=== PATIENT | male | born 1995 | race African-American/Black ===

== ENCOUNTER 2017-11-24 22:08 | Emergency (ER) | payer MEDICAID, OTHER ==
[~2017-11-24] VITALS: Ht 182.9 cm; Wt 72.6 kg
[2017-11-24] MEDS ORDERED: IBUPROFEN600 MG ORAL (22:42)
--- NOTE | 2017-11-24 22:42 | Emergency Room Report ---
History of Present Illness General Chief Complaint: Upper Extremity Injury Source: Patient Present Illness HPI Is a 22-year-old male who is right-hand dominant. He presents with chief complaint of right wrist pain. Onset was about a week ago after he was boxing. He said after the bout since then his wrist been hurting. Special he try to move his thumb and index finger. No swelling. No fever chills. Denies any other complaint. Pain is 7 out of 10. Worse with movement. Better with rest. Allergies: Coded Allergies: No Known Allergies (Unverified , 11/24/17) Patient History Past Medical History: see triage record, old chart reviewed Past Surgical History: none Pertinent Family History: none Social History: Denies: smoking Immunizations: other Reviewed Nursing Documentation: PMH: Agreed; PSxH: Agreed Nursing Documentation-PM Past Medical History: No Stated History Review of Systems Eye: Denies: eye pain, blurred vision ENT: Denies: ear pain, nose congestion, throat swelling Respiratory: Denies: cough, shortness of breath Cardiovascular: Denies: chest pain, palpitations Gastrointestinal: Denies: abdominal pain, diarrhea, nausea, vomiting Musculoskeletal: Reports: joint pain; Denies: back pain Skin: Denies: rash Neurological: Denies: headache, numbness Endocrine: Denies: increased thirst, increased urine Hematologic/Lymphatic: Denies: easy bruising All Other Systems: negative except mentioned in HPI Physical Exam Vital Signs Date Time Temp Pulse Resp B/P (MAP) Pulse Ox O2 Delivery O2 Flow Rate FiO2 11/24/17 22:22 98.7 77 16 143/83 98 Room Air 98.8 vitals unremarkable Sp02 EP Interpretation: reviewed, normal General Appearance: well appearing, no apparent distress, alert Head: normocephalic, atraumatic Eyes: bilateral eye PERRL, bilateral eye EOMI ENT: hearing grossly normal, normal pharynx Neck: full range of motion, supple, no meningismus Respiratory: chest non-tender, lungs clear, normal breath sounds Cardiovascular #1: regular rate, rhythm, no murmur Gastrointestinal: normal bowel sounds, non tender, no mass, no organomegaly, no bruit, non-distended Musculoskeletal: back normal, gait/station normal, normal range of motion, tender - Mild tenderness to the base the thumb at the wrist on the right Neurologic: alert, oriented x3 Psychiatric: mood/affect normal Skin: warm/dry Medical Decision Making Diagnostic Impression: Primary Impression: Sprain of wrist, right Qualified Codes: S63.501A - Unspecified sprain of right wrist, initial encounter Other X-Ray Diagnostic Results Other X-Ray Diagnostic Results : X-Ray ordered: Right wrist x-rays # of Views/Limited Vs Complete: 3 View Indication: Pain EP Interpretation: Yes Interpretation: no dislocation, no soft tissue swelling, no fractures Impression: No acute disease Electronically Signed by: Evelio Xiong MD Last Vital Signs Date Time Temp Pulse Resp B/P (MAP) Pulse Ox O2 Delivery O2 Flow Rate FiO2 11/24/17 22:22 98.7 77 16 143/83 98 Room Air 98.8 Status: improved Disposition: HOME, SELF-CARE Condition: Stable Scripts Ibuprofen* (MOTRIN*) 600 Mg Tablet 600 MG ORAL THREE TIMES A DAY, #30 TAB 0 Refills Prov: EVELIO XIONG M.D. 11/24/17 Additional Instructions: Follow-up with your doctor in 7 days. Return if symptom worsen. EVELIO XIONG M.D. Nov 24, 2017 22:42
[2017-11-24 22:43] VITALS: BP 143/83
[2017-11-24 22:59] VITALS: BP 143/83
--- NOTE | 2017-11-24 23:34 | Diagnostic Imaging Report ---
EXAM: XR Right Wrist Complete, 3 or More Views CLINICAL HISTORY: TRAUMA TECHNIQUE: Frontal, lateral and oblique views of the right wrist. COMPARISON: No relevant prior studies available. FINDINGS: Bones/joints: Unremarkable. No acute fracture. No dislocation. Soft tissues: Unremarkable. No radiopaque foreign body. IMPRESSION: Normal right wrist x-rays.
== END 2017-11-24 22:59 | disposition home or self-care (01) ==
LOC: EMR 22:19
DX: S63.501A Unspecified sprain of right wrist, initial encounter (principal); Y93.71 Activity, boxing; Y92.9 Unspecified place or not applicable
CPT/HCPCS: 99283

== ENCOUNTER 2018-06-27 21:50 | Emergency (ER) | payer SELFPAY ==
[~2018-06-27] VITALS: Ht 182.9 cm; Wt 72.6 kg
[~2018-06-27 21:50] MED LIST: IBUPROFEN600 MG ORAL
--- NOTE | 2018-06-27 22:05 | NUR ---
ED Nurse Note: Pt c/o L eye redness and painful since yesterday. Pain level 5/10. Pt use eye drop but not working. ermd on bedside. will continue to monitor.
[2018-06-27] MEDS ORDERED: POLYTRIM OP SOL10 ML OPHTHALM (22:12)
--- NOTE | 2018-06-27 22:13 | Emergency Room Report ---
History of Present Illness General Chief Complaint: Eye Problems Source: Patient Present Illness HPI Is a 22-year-old male with no past medical history. He presents with chief complaint of left eye irritation. Onset for the last 2-3 days. No relief with [id number] medication. Slight drainage. Some redness. No nausea vomiting. No foreign body. Discharge is clear. Slight runny nose and congestion. Allergies: Coded Allergies: No Known Allergies (Unverified , 11/24/17) Patient History Past Medical History: see triage record, old chart reviewed Past Surgical History: none Pertinent Family History: none Social History: Reports: drug use - Marijuana; Denies: smoking Immunizations: other Reviewed Nursing Documentation: PMH: Agreed; PSxH: Agreed Review of Systems Eye: Reports: eye pain; Denies: blurred vision ENT: Denies: ear pain, nose congestion, throat swelling Respiratory: Denies: cough, shortness of breath Cardiovascular: Denies: chest pain, palpitations Gastrointestinal: Denies: abdominal pain, diarrhea, nausea, vomiting Musculoskeletal: Denies: back pain, joint pain Skin: Denies: rash Neurological: Denies: headache, numbness Endocrine: Denies: increased thirst, increased urine Hematologic/Lymphatic: Denies: easy bruising All Other Systems: negative except mentioned in HPI Physical Exam Vital Signs Date Time Temp Pulse Resp B/P (MAP) Pulse Ox O2 Delivery O2 Flow Rate FiO2 06/27/18 22:00 99.0 94 18 133/75 98 Room Air vitals normal Sp02 EP Interpretation: reviewed, normal General Appearance: well appearing, no apparent distress, alert Head: normocephalic, atraumatic Eyes: left eye other - Left conjunctiva injected; bilateral eye PERRL, bilateral eye EOMI ENT: hearing grossly normal, normal pharynx Neck: full range of motion, supple, no meningismus Respiratory: chest non-tender, lungs clear, normal breath sounds Cardiovascular #1: regular rate, rhythm, no murmur Gastrointestinal: normal bowel sounds, non tender, no mass, no organomegaly, no bruit, non-distended Musculoskeletal: back normal, gait/station normal, normal range of motion Psychiatric: mood/affect normal Skin: warm/dry Medical Decision Making Diagnostic Impression: Primary Impression: Conjunctivitis of left eye Qualified Codes: H10.32 - Unspecified acute conjunctivitis, left eye ER Course Patient with acute conjunctivitis. No foreign body. No loss of visual acuity. With antibiotic drops. Told patient to treat both eyes. Last Vital Signs Date Time Temp Pulse Resp B/P (MAP) Pulse Ox O2 Delivery O2 Flow Rate FiO2 06/27/18 22:00 99.0 94 18 133/75 98 Room Air Status: improved Disposition: HOME, SELF-CARE Condition: Stable Scripts Polymyxin/Trimethoprim (Polytrim Eye Drops) 10 Ml Drops 2 DROP OPHTHALM THREE TIMES A DAY, #1 EA Instill in affected eye for 7 days Prov: Evelio Xiong MD 06/27/18 Patient Instructions: Bacterial Conjunctivitis, [id number] Additional Instructions: Treat both eyes. Do not rub the eyes. Follow-up with your doctor in 7 days for recheck. Return if worse. Evelio Xiong MD Jun 27, 2018 22:13
[2018-06-27 22:16] VITALS: BP 133/75
--- NOTE | 2018-06-27 22:16 | NUR ---
ED Nurse Note: Patient is being discharged cleared by ER PA. discharge paper/instruction given to the patient, patient verbalized understanding. patient a/o x4, ambulated out of Ed with steady gait, with all belongings. ID band removed.
== END 2018-06-27 22:30 | disposition home or self-care (01) ==
LOC: EMR 22:10
DX: H10.32 Unspecified acute conjunctivitis, left eye (principal); F12.90 Cannabis use, unspecified, uncomplicated; F17.200 Nicotine dependence, unspecified, uncomplicated
CPT/HCPCS: 99282

== ENCOUNTER 2019-02-16 00:53 | Emergency (ER) | payer MEDICAID, OTHER ==
[~2019-02-16] VITALS: Ht 182.9 cm; Wt 86.2 kg
[~2019-02-16 00:53] MED LIST changes: +POLYTRIM OP SOL10 ML OPHTHALM; +TESSALON PERLE100 MG ORAL
[2019-02-16] MEDS ORDERED: NKM (01:00)
--- NOTE | 2019-02-16 01:04 | NUR ---
ED Nurse Note: PT WALKED IN TO ED C/O PAIN TO RIGHT PINKY TOE. MPER PT, ABOUT 3 WEEKS AGO, HIS FRIEND TEPPED ON IT BY ACCIDENT. MINIMAL SWELLING NOTED TO RIGHT PINKY TOE. PT IS STILL ABLE TO MOVE ALL THE TOES TO RIGHT FOOT. PT IS ALERT X4. VSS.
--- NOTE | 2019-02-16 01:04 | NUR ---
Note nahid in EDM - 02/16/19 at 0115 by DOUGLAS ED Nurse Note: PT WALKED IN TO ED C/O PAIN TO RIGHT PINKY TOE. MPER PT, ABOUT A WEEK AGO, HIS FRIEND TEPPED ON IT BY ACCIDENT. MINIMAL SWELLING NOTED TO RIGHT PINKY TOE. PT IS STILL ABLE TO MOVE ALL THE TOES TO RIGHT FOOT. PT IS ALERT X4. VSS.
--- NOTE | 2019-02-16 01:15 | Emergency Room Report ---
History of Present Illness General Chief Complaint: Lower Extremity Injury Source: Patient Present Illness [facility] This is a 23-year-old male with no past medical problem. He presents with chief complaint of right foot pain. Injury was about 2 to 3 weeks ago. Was playing football in the pool and a friend of his who is very heavy step on his foot. He said it was all swollen and black and blue for over a week. Now when he walks he has some pain to it. Normal swelling. Normal trauma. He wants to make sure everything is fine. Denies any other complaint. Pain is to the base of the fifth toe and lateral aspect of the foot distally. Allergies: Coded Allergies: No Known Allergies (Unverified , 11/24/17) Patient History Past Medical History: none, see triage record, old chart reviewed Past Surgical History: none Pertinent Family History: none Social History: Denies: smoking Immunizations: UTD Reviewed Nursing Documentation: PMH: Agreed; PSxH: Agreed Nursing Documentation-PMH Past Medical History: No Stated History Review of Systems Eye: Denies: eye pain, blurred vision ENT: Denies: ear pain, nose congestion, throat swelling Respiratory: Denies: cough, shortness of breath Cardiovascular: Denies: chest pain, palpitations Gastrointestinal: Denies: abdominal pain, diarrhea, nausea, vomiting Musculoskeletal: Reports: joint pain; Denies: back pain Skin: Denies: rash Neurological: Denies: headache, numbness Endocrine: Denies: increased thirst, increased urine Hematologic/Lymphatic: Denies: easy bruising All Other Systems: negative except mentioned in HPI Physical Exam Vital Signs Date Time Temp Pulse Resp B/P (MAP) Pulse Ox O2 Delivery O2 Flow Rate FiO2 02/16/19 00:57 98.2 72 18 123/78 (93) 98 Room Air Vitals normal Sp02 EP Interpretation: reviewed, normal General Appearance: well appearing, no apparent distress, alert Head: normocephalic, atraumatic Eyes: bilateral eye PERRL, bilateral eye EOMI ENT: hearing grossly normal, normal pharynx Neck: full range of motion, supple, no meningismus Respiratory: chest non-tender, lungs clear, normal breath sounds Cardiovascular #1: regular rate, rhythm, no murmur Gastrointestinal: normal bowel sounds, non tender, no mass, no organomegaly, no bruit, non-distended Musculoskeletal: back normal, gait/station normal, normal range of motion Psychiatric: mood/affect normal Medical Decision Making Diagnostic Impression: Primary Impression: Toe fracture, right Qualified Codes: S92.514A - Nondisplaced fracture of proximal phalanx of right lesser toe(s), initial encounter for closed fracture ER Course Presents with toe fracture. No evidence of dislocation. Will discharge home. Other X-Ray Diagnostic Results Other X-Ray Diagnostic Results : X-Ray ordered: Foot x-rays, right # of Views/Limited Vs Complete: 3 View Indication: Pain EP Interpretation: Yes Interpretation: no dislocation, no soft tissue swelling, other - Proximal phalanx fracture of the fifth toe Impression: Other - 5th prox phal frx of toe Electronically Signed by: Evelio Xiong MD Last Vital Signs Date Time Temp Pulse Resp B/P (MAP) Pulse Ox O2 Delivery O2 Flow Rate FiO2 02/16/19 00:57 98.2 72 18 123/78 (93) 98 Room Air Status: unchanged Disposition: HOME, SELF-CARE Condition: Stable Scripts Ibuprofen* (MOTRIN*) 600 Mg Tablet 600 MG ORAL THREE TIMES A DAY, #30 TAB 0 Refills Prov: Evelio Xiong MD 02/16/19 Additional Instructions: Follow up with your doctor in 7 days. Return if symptoms worsen. Evelio Xiong MD Feb 16, 2019 01:15
--- NOTE | 2019-02-16 01:17 | NUR ---
ED Nurse Note: X RAY AT BED SIDE
[2019-02-16] MEDS ORDERED: IBUPROFEN600 MG ORAL (01:25)
[2019-02-16 01:28] VITALS: BP 122/78
--- NOTE | 2019-02-16 01:28 | NUR ---
ER DISCHARGE NOTE: Patient is cleared to be discharged per ERMD, pt is aox4, on room air, with stable vital signs. pt was given dc and prescription instructions, pt was able to verbalize understanding, pt id band removed without complications. pt is able to ambulate with steady gait. pt took all belongings.
--- NOTE | 2019-02-16 01:59 | Diagnostic Imaging Report ---
EXAM: XR Right Foot Complete, 3 or More Views CLINICAL HISTORY: TRAUMA TECHNIQUE: Frontal, lateral and oblique views of the right foot. COMPARISON: No relevant prior studies available. FINDINGS: Bones joints: Acute fracture through the base of the proximal phalanx of the fifth digit. No dislocation. Soft tissues: Unremarkable. No radiopaque foreign body. IMPRESSION: Acute fracture through the base of the proximal phalanx of the fifth digit. No definite intra-articular extension.
== END 2019-02-16 01:28 | disposition home or self-care (01) ==
LOC: EMR 01:15
DX: S92.514A Nondisplaced fracture of proximal phalanx of right lesser toe(s), initial encounter for closed fracture (principal); W50.0XXA Accidental hit or strike by another person, initial encounter; Y93.11 Activity, swimming; Y92.9 Unspecified place or not applicable
CPT/HCPCS: 73630; Z7502; 99283

== ENCOUNTER 2019-03-25 22:17 | Emergency (ER) | payer MEDICAID ==
[~2019-03-25] VITALS: Ht 193 cm; Wt 86.2 kg
[~2019-03-25 22:17] MED LIST changes: +NKM
--- NOTE | 2019-03-25 22:28 | NUR ---
ED Nurse Note: pt presents to ED c/o a cough X 2 weeks. pt denies any pain but does report "congestion in his chest." pt states that he ahs felt this way in the past and has been prescriped abx for it. pt reports mild SOB when lying down at night for work and "sometimes" on exertion. pt has not taken anything for his symptoms today. mild bilat expiratory wheezes heard on auscultation
[2019-03-25 22:30] VITALS: BP 153/97
[2019-03-25] MEDS ORDERED: Albuterol ud Inhalation HHN ONE (22:45)
[2019-03-25] MEDS ORDERED: Ipratropium 0.02% Inh Soln 2.5ml UD HHN ONE (22:45)
--- NOTE | 2019-03-25 22:50 | NUR ---
ED Nurse Note: RT is in with pt for breathing treatment. pt tolerated 60 mg of prednisone PO
--- NOTE | 2019-03-25 23:11 | NUR ---
ED Nurse Note: per RT, pt's wheezing has improved and sounds more dimished now. pt reports less congestion. he is in no acute distress at this time, will prepare for d/c
[2019-03-25] MEDS ORDERED: ALBUTEROL SULF8.5 GM INH (23:15)
[2019-03-25] MEDS ORDERED: AMOXICILLIN500 MG ORAL (23:15)
[2019-03-25] MEDS ORDERED: PREDNISONE20 MG ORAL (23:15)
[2019-03-25 23:22] VITALS: BP 148/84
--- NOTE | 2019-03-25 23:38 | Emergency Room Report ---
History of Present Illness General Chief Complaint: Upper Respiratory Illness Source: Patient Present Illness HPI 23-year-old male presents ED for evaluation. Complaining of cough and congestion x2 weeks. States it is difficult to breathe. States cough is productive with yellowish phlegm. Denies fevers or chills. Denies asthma. Admits to smoking marijuana every day. Denies sick contacts or recent travel. No other aggravating relieving factors. Denies any other associated symptoms Allergies: Coded Allergies: No Known Allergies (Unverified , 11/24/17) Patient History Past Medical History: none Past Surgical History: none Pertinent Family History: none Social History: Reports: smoking, drug use; Denies: alcohol use Immunizations: UTD Reviewed Nursing Documentation: PMH: Agreed; PSxH: Agreed Nursing Documentation-PMH Past Medical History: No Stated History Review of Systems All Other Systems: negative except mentioned in HPI Physical Exam Vital Signs Date Time Temp Pulse Resp B/P (MAP) Pulse Ox O2 Delivery O2 Flow Rate FiO2 03/25/19 22:19 98.1 67 16 153/97 (115) 98 Room Air 03/25/19 22:46 21 Sp02 EP Interpretation: reviewed, normal General Appearance: no apparent distress, alert, GCS 15, non-toxic Head: normocephalic, atraumatic Eyes: bilateral eye normal inspection, bilateral eye PERRL ENT: hearing grossly normal, normal pharynx, no angioedema, normal voice Neck: full range of motion, supple/symm/no masses Respiratory: chest non-tender, decreased breath sounds, speaking full sentences , wheezing Cardiovascular #1: regular rate, rhythm, no edema Cardiovascular #2: 2+ carotid (R), 2+ carotid (L), 2+ radial (R), 2+ radial (L) , 2+ dorsalis pedis (R), 2+ dorsalis pedis (L) Gastrointestinal: normal bowel sounds, non tender, soft, non-distended, no guarding, no rebound Rectal: deferred Genitourinary: normal inspection, no CVA tenderness Musculoskeletal: back normal, gait/station normal, normal range of motion, non- tender Neurologic: alert, oriented x3, responsive, motor strength/tone normal, sensory intact, speech normal Psychiatric: judgement/insight normal, memory normal, mood/affect normal, no suicidal/homicidal ideation Reflexes: 3+ bicep (R), 3+ bicep (L), 3+ tricep (R), 3+ tricep (L), 3+ knee (R) , 3+ knee (L) Lymphatic: no adenopathy Medical Decision Making Diagnostic Impression: Primary Impression: Atypical pneumonia ER Course Hospital Course 23-year-old male presents to ED complaining of cough, congestion x 2 weeks Differential diagnoses include: URI, bronchitis, asthma/COPD, pneumonia Clinical course Patient placed on stretcher. After initial history and physical I ordered prednisone and nebulizer treatment. Upon reassessment patient states cough and symptoms have improved. Given symptoms persisting for 2 weeks with smoking history we will discharge with antibiotics. Does not have a PMD. Will provide referrals Diagnosis - atypical pneumonia Stable and discharged home with prescriptions for Rx amoxicillin, prednisone, albuterol. Instructed to followup with PMD. Return to ED if symptoms recur or worsen Last Vital Signs Date Time Temp Pulse Resp B/P (MAP) Pulse Ox O2 Delivery O2 Flow Rate FiO2 03/25/19 23:22 98.1 16 148/84 97 Room Air 21 03/25/19 23:02 63 Status: improved Disposition: HOME, SELF-CARE Condition: Stable Scripts Prednisone* (PREDNISONE*) 20 Mg Tablet 40 MG ORAL DAILY, #10 TAB Prov: Shan Maxwell MD 03/25/19 Albuterol Sulfate* (ALBUTEROL SULFATE MDI*) 8.5 Gm Hfa.aer.ad 2 PUFF INH Q6H, #1 EA 0 Refills Prov: Shan Maxwell MD 03/25/19 Amoxicillin* (AMOXIL*) 500 Mg Capsule 500 MG ORAL THREE TIMES A DAY, #21 CAP Prov: Shan Maxwell MD 03/25/19 Referrals: [facility] Patient Instructions: Community-Acquired Pneumonia, Adult, [id number] Shan Maxwell MD Mar 25, 2019 23:38
== END 2019-03-25 23:23 | disposition home or self-care (01) ==
LOC: EMR 22:35
DX: J18.9 Pneumonia, unspecified organism (principal); F17.200 Nicotine dependence, unspecified, uncomplicated; F12.10 Cannabis abuse, uncomplicated
CPT/HCPCS: 94640; 94664; J7512; Z7502; 99284

== ENCOUNTER 2019-11-09 17:51 | Emergency (ER) | payer MEDICAID ==
[~2019-11-09] VITALS: Ht 182.9 cm; Wt 81.6 kg
[~2019-11-09 17:51] MED LIST changes: +ALBUTEROL SULF8.5 GM INH; +AMOXICILLIN500 MG ORAL; +PREDNISONE20 MG ORAL
[2019-11-09 18:05] VITALS: BP 128/80
--- NOTE | 2019-11-09 18:21 | Emergency Room Report ---
History of Present Illness General Chief Complaint: Upper Respiratory Illness Source: Patient Present Illness HPI 24 YO male presents to the ED c/o purulent nasal d/c and congestion x 2 weeks. Pt. denies fevers or chills. He denies pain at this time. Reports hx of seasonal allergies in the past but present differently. Pt. reports congestion causing frontal pressure headaches that are progressive and intermittent. Pt. denies photophobia, neck pain/stiffness or CP. pt. reports occasionally coughing out mucus that drains down his throat usually when awakening in the mornings. Pt. denies recent travel or ill contacts. Pt. denies body aches. Denies SOB or wheezing. Allergies: Coded Allergies: No Known Allergies (Unverified , 11/24/17) COVID-19 Screening Contact w/high risk pt: No Recent Travel to affected area: No Experienced COVID-19 symptoms?: Yes COVID-19 symptoms experienced: Cough COVID-19 Testing performed EMS DIRECTOR: No Patient History Past Medical History: see triage record Past Surgical History: none Pertinent Family History: none Social History: Reports: smoking - THC Immunizations: UTD Reviewed Nursing Documentation: PMH: Agreed; PSxH: Agreed Nursing Documentation-PMH Past Medical History: No Stated History Review of Systems All Other Systems: negative except mentioned in HPI Physical Exam Vital Signs Date Time Temp Pulse Resp B/P (MAP) Pulse Ox O2 Delivery O2 Flow Rate FiO2 11/09/19 17:55 98.1 73 14 128/80 (96) 98 Room Air Sp02 EP Interpretation: reviewed, normal General Appearance: no apparent distress, alert, GCS 15, non-toxic Head: normocephalic, atraumatic Eyes: bilateral eye normal inspection, bilateral eye PERRL, bilateral eye other - no photophobia ENT: hearing grossly normal, normal pharynx, normal voice, TMs + canals normal , uvula midline, moist mucus membranes, nasal congestion - bilaterally. nares are not patent Neck: full range of motion, no meningismus, no bony tend Respiratory: chest non-tender, lungs clear, normal breath sounds, no respiratory distress, no accessory muscle use, no wheezing, speaking full sentences Cardiovascular #1: regular rate, rhythm Musculoskeletal: normal range of motion, gait/station normal, non-tender Neurologic: alert, motor strength/tone normal, oriented x3, sensory intact, responsive, speech normal Psychiatric: judgement/insight normal Skin: normal color Lymphatic: no adenopathy Medical Decision Making PA Attestation Dr. Casanova Is my supervising Physician whom patient management has been discussed with. Diagnostic Impression: Primary Impression: Sinusitis, bacterial ER Course 24 YO male presents to the ED c/o purulent nasal d/c and congestion x 2 weeks. Pt. denies fevers or chills. He denies pain at this time. Reports hx of seasonal allergies in the past but present differently. Pt. reports congestion causing frontal pressure headaches that are progressive and intermittent. Pt. denies photophobia, neck pain/stiffness or CP. pt. reports occasionally coughing out mucus that drains down his throat usually when awakening in the mornings. Pt. denies recent travel or ill contacts. Pt. denies body aches. Denies SOB or wheezing. Ddx considered but are not limited to URI, pneumonia, PE, strep pharyngitis, meningitis, COVID-19 Vital signs: Pt. is afebrile, the remaining VS are WNL H&PE are most consistent with SINUSITIS lasting greater than 10 days ---- 2 weeks to be exact. - no meningeal signs, oropharynx is not involved, no evidence of bacterial infection at this time. Pt. not in resp. distress. Pt. not hypoxic ORDERS: none required at this time, the diagnosis is clinical ED INTERVENTIONS: None required at this time. --PT. EDUCATION: Discussed conservative use of Afrin and not to use more than 3 days in a row. DISCHARGE: At this time pt. is stable for d/c to home. Will provide printed patient care instructions, and any necessary prescriptions. Care plan and follow up instructions have been discussed with the patient prior to discharge. Last Vital Signs Date Time Temp Pulse Resp B/P (MAP) Pulse Ox O2 Delivery O2 Flow Rate FiO2 11/09/19 18:05 73 14 Room Air 11/09/19 18:05 98.1 128/80 98 Disposition: HOME, SELF-CARE Condition: Stable Scripts Acetaminophen* (TYLENOL EXTRA STRENGTH*) 500 Mg Tablet 500 MG ORAL Q6H, #20 TAB 0 Refills Prov: Suzie Escobar 11/09/19 Oxymetazoline HCl (Afrin) 15 Ml [place] 2 SPRAYS NASAL TWICE A DAY, #30 SPRAY Do not use for more than 3 consecutive days Prov: Suzie Escobar 11/09/19 Amoxicillin/Potassium Clav 875-125* (AUGMENTIN 875-125 TABLET*) 1 Each Tablet 1 TAB ORAL TWICE A DAY for 10 Days, #20 TAB Prov: Suzie Escobar 11/09/19 Referrals: NON PHYSICIAN (PCP) Suzie Escobar Nov 09, 2019 18:21
[2019-11-09] MEDS ORDERED: AUGMENTIN 875-1 EAC1 ORAL (18:25)
[2019-11-09] MEDS ORDERED: AFRIN NASAL SPR30 ML NASAL (18:25)
[2019-11-09] MEDS ORDERED: TYLENOL EXTRA500 MG ORAL (18:25)
[2019-11-09 18:36] VITALS: BP 128/80
== END 2019-11-09 18:37 | disposition home or self-care (01) ==
LOC: EMR 18:14
DX: J32.9 Chronic sinusitis, unspecified (principal)
CPT/HCPCS: 99282

== ENCOUNTER 2020-04-04 11:26 | Emergency (ER) | payer MEDICAID ==
[~2020-04-04] VITALS: Ht 182.9 cm; Wt 80.3 kg
[~2020-04-04 11:26] MED LIST changes: +AFRIN NASAL SPR30 ML NASAL; +AUGMENTIN 875-1 EAC1 ORAL; +TYLENOL EXTRA500 MG ORAL
[2020-04-04 11:39] VITALS: BP 112/78
--- NOTE | 2020-04-04 11:39 | NUR ---
ED Nurse Note: Pt walked in to ED c/o on and off difficulty breathing that worsens in the AM and while exercising x couple months. Pt was seen here couple months ago and was told to go back to the ER if his breathing did not improve. Pt took his inhaler this AM. On room air, 97%. afberile. Denies CP. AAOx4, verbally responsive.
--- NOTE | 2020-04-04 12:24 | Emergency Room Report ---
History of Present Illness General Chief Complaint: Dyspnea/Respdistress Source: Patient Present Illness HPI The patient presents with difficult to breathing. At this time it is mainly that he has nasal congestion. In the morning sometimes however he complains about wheezing. He does have an inhaler and uses that with some improvement. He denies any wheezing at this time. There is no fever or chills. He denies noticing some postnasal drip. His mother has a history of allergies. He is not been diagnosed with allergies. The patient was recently seen here a few weeks ago and prescribed Augmentin, Afrin and Tylenol. He states that he had improvement with that but has run out of medications at this time. He denies any epistaxis. The patient does smoke cannabis. Patient denies exposure to COVID-19 positive contacts. The patient is undergoing treatment for acne. There are 2 medications and is not certain what the names are. No sore throat, chest pain, palpitations, nausea, vomiting, diarrhea, dysuria, abdominal pain, shortness of breath, joint pain, rashes, dizziness, headache. In addition the patient is complaining about some swelling under his right underarm. There is no drainage there. This is been an intermittent problem. 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 Patient History Social History: Reports: drug use; Denies: smoking, alcohol use Social History Narrative Works at [employer] Reviewed Nursing Documentation: PMH: Agreed; PSxH: Agreed Nursing Documentation-PMH Past Medical History: No Stated History Review of Systems All Other Systems: negative except mentioned in HPI Physical Exam Vital Signs Date Time Temp Pulse Resp B/P (MAP) Pulse Ox O2 Delivery O2 Flow Rate FiO2 04/04/20 11:33 98.8 70 19 112/78 (89) 99 Room Air Sp02 EP Interpretation: reviewed, normal General Appearance: well appearing, no apparent distress, GCS 15 Head: normocephalic Eyes: bilateral eye normal inspection, bilateral eye PERRL, bilateral eye EOMI ENT: normal pharynx, TMs + canals normal, moist mucus membranes, other - Nasal congestion and slight erythema Neck: normal inspection, full range of motion Respiratory: lungs clear, normal breath sounds Cardiovascular #1: regular rate, rhythm Gastrointestinal: normal inspection Musculoskeletal: gait/station normal Neurologic: alert, grossly normal Psychiatric: mood/affect normal Skin: normal color, warm/dry, other - Acne Medical Decision Making Diagnostic Impression: Primary Impression: Allergic rhinitis Qualified Codes: J30.9 - Allergic rhinitis, unspecified Additional Impression: Hydradenitis ER Course The patient presents with nasal congestion and occasional wheezing. Differential includes sinusitis, allergic sinusitis, asthma exacerbation amongst others. Without fever doubt bacterial infection. He had improvement with Afrin and antibiotics recently. From his exam and history this is suggests allergic rhinitis and sinusitis. In addition the patient has painful nodules under the right armpit. This suggests either hidradenitis or lymphadenopathy or both. At this time there is no evidence of abscess formation. Without fever antibiotics or not indicated orally. The patient will be treated with topical antibiotics. Discussed in detail considerations for treatment of allergic rhinitis and bronchospasm. In addition discussed treatment plan for the hidradenitis the right armpit. Discussed the importance of outpatient follow-up with patient. Patient stable for outpatient observation and treatment. Last Vital Signs Date Time Temp Pulse Resp B/P (MAP) Pulse Ox O2 Delivery O2 Flow Rate FiO2 04/04/20 12:35 98.8 19 112/78 99 Room Air 04/04/20 11:39 70 Status: unchanged Disposition: HOME, SELF-CARE Condition: Stable Scripts Bacitracin (Bacitracin) 28.4 Gm Oint...g. 1 APPLIC TOPIC BID, #30 GM Prov: Macario Bishop MD 04/04/20 Diphenhydramine Hcl* (BENADRYL*) 25 Mg Capsule 25 MG ORAL QHS PRN for Itching, #20 CAP Prov: Macario Bishop MD 04/04/20 Oxymetazoline Hcl* (AFRIN*) 15 Ml Mist 2 SPRAYS NASAL TWICE A DAY, #15 ML 1 Refill Prov: Macario Bishop MD 04/04/20 Referrals: [facility],REFERR[facility] (PCP) Macario Bisohp MD Apr 04, 2020 12:24
[2020-04-04] MEDS ORDERED: AFRIN15 ML NASAL (12:27)
[2020-04-04] MEDS ORDERED: BACITRACIN15 GM TOPIC (12:27)
[2020-04-04] MEDS ORDERED: BENADRYL25 MG ORAL (12:27)
[2020-04-04 12:35] VITALS: BP 112/78
--- NOTE | 2020-04-04 12:35 | NUR ---
ED Nurse Note: Pt cleared by health care Provider for discharge. DC instructions/prescription was given and explained to pt and verbalized understanding of teachings. All medical deviecs such as ID band removed. Pt is AAO x4, ambulatory and left with all personal belongings.
== END 2020-04-04 12:35 | disposition home or self-care (01) ==
LOC: EMR 11:52
DX: J30.9 Allergic rhinitis, unspecified (principal); L73.2 Hidradenitis suppurativa; R05 Cough
CPT/HCPCS: 99282

== ENCOUNTER 2020-06-04 09:11 | Emergency (ER) | payer MEDICAID ==
[~2020-06-04] VITALS: Ht 182.9 cm; Wt 77.1 kg
[~2020-06-04 09:11] MED LIST changes: +AFRIN15 ML NASAL; +BACITRACIN15 GM TOPIC; +BENADRYL25 MG ORAL
--- NOTE | 2020-06-04 09:30 | NUR ---
ED Nurse Note: Pt walked in from home c/o left arm abscess x 1 year. Pt denies drainage. Respirations even and unlabored on room air. Vitals stable as documented. A+Ox4, speaking in complete sentences.
[2020-06-04 09:40] VITALS: BP 133/84
[2020-06-04] MEDS ORDERED: DOXYCYCLINE MO100 M2 PO (09:59)
[2020-06-04] MEDS ORDERED: NAPROXEN500 M1 ORAL (09:59)
[2020-06-04] MEDS ORDERED: BACTRIM DS TAB1 EAC1 ORAL (09:59)
--- NOTE | 2020-06-04 09:59 | Emergency Room Report ---
History of Present Illness General Chief Complaint: Skin Rash/Abscess Source: Patient Present Illness HPI 24M c/o L axillary abscess x several years , worse over the past 7 days. Denies fevers, chills, nausea, vomiting, chest pain, hemoptysis, melena, hematochezia, petechiae or any other symptoms. Patient states he shaved his armpits about a week ago and this is when everything started. The patient's symptoms were gradual onset, severity was moderate, duration since 7_ days. Quality: swollen Past medical history: left axillary absces Past surgical history: Denies Smoking: Denies Alcohol use: Denies Drug use: Denies Review of systems: CONST: No fevers or chills, No night sweats PULMONARY: No productive cough, No shortness of breath CARDIAC: No chest pain, No palpitations GI: No vomiting, No diarrhea , No melena_or_BRBPR : No dysuria, No hematuria, No discharge NEURO: No new_focal_weakness_or_numbness, No confusion, No vision changes 14 point Review of Systems is otherwise negative except per HPI Physical Exam: GENERAL: Awake_alert_ nontoxic, no acute distress Spo2 98% on RA -normal EYES: Extraocular muscles are intact. Conjunctivae clear. Lids without swelling ENT: External nose and ear normal_in_appearance. Oropharynx clear. Head_atraumatic, Moist_oral_mucosa NECK: No JVD. No meningismus. No thyromegaly. Supple. Trachea midline RESP: Normal respiratory effort. Symmetric rise. No stridor. Flavio ar_to_auscultation_No_rales_No_wheezes CARDIAC: Regular rate and regular rhytm. No_significant pedal edema. ABDOMEN: Soft. Nondistended. Nontender_No_rebound_or_guarding. MSK: Normal muscle tone, without rigidity. Extremities without asymmetric deformity or swelling. SKIN: Hard indurated nonfluctuant abscess to the left axilla. No overlying cellulitis. No palpable crepitus. No pain out of proportion. Warm and dry. No visible cyanosis or pallor NEUROLOGIC: Alert, oriented x3. Motor_and_sensation_grossly_intact. No truncal ataxia. Gait_normal Psych: Normal mood and affect, normal judgment and insight - COORDINATION OF CARE Case was discussed with: Patient Medical Decision Making/Plan: Differential diagnosis: Abscess versus folliculitis versus dermatitis. No evidence of necrotizing fasciitis 23-year-old male with acute on chronic left axillary abscess. On examination, the entire abscess is indurated. No overlying cellulitis or fluctuance. There is no abscess amenable to drainage at this time. Will prescribe antibiotics and recommend 2-day wound check with PMD. Pertinent physical examination results reviewed with the patient. I educated the patient on the current treatment plan including the risks, benefits, and alternatives. I also discussed the extent and limitations of the current evaluation. The patient expressed understanding and agreement with plan. I recommended PMD follow-up within 1-2 days. Also advised that the patient return to the Emergency Department as soon as possible if they experience any new, persistent, or worsening symptoms. 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 Documentation-PMH Past Medical History: No History, Except For Physical Exam Vital Signs Date Time Temp Pulse Resp B/P (MAP) Pulse Ox O2 Delivery O2 Flow Rate FiO2 06/04/20 09:18 98.2 70 20 127/80 (96) 99 Room Air Sp02 EP Interpretation: reviewed, normal Medical Decision Making Diagnostic Impression: Primary Impression: Abscess of left axilla Last Vital Signs Date Time Temp Pulse Resp B/P (MAP) Pulse Ox O2 Delivery O2 Flow Rate FiO2 06/04/20 09:40 98.4 87 20 133/84 98 Room Air Disposition: HOME, SELF-CARE Admit Decision Time: 09:57 Condition: Stable Scripts Naproxen* (NAPROXEN*) 500 Mg Tablet.dr 500 MG ORAL TWICE A DAY for 7 Days, #14 TAB Prov: Kate Tatum D.O. 06/04/20 Trimethoprim/Sulfamethoxazole 160/800* (BACTRIM DS TABLET*) 1 Each Tablet 1 TAB ORAL Q12H, #14 TAB 0 Refills Prov: Kate Tatum D.O. 06/04/20 Doxycycline Monohydrate (DOXYCYCLINE MONOHYDRATE) 100 Mg Tablet 100 MG PO BID for 7 Days, #14 TAB Prov: Kate Tatum D.O. 06/04/20 Patient Instructions: Abscess Additional Instructions: Instructions for patient/jackspooler: Follow up with your physician in 1-2 days in for wound check. Stop shaving your armpits. Follow-up with your doctor sooner if your condition requires a more timely clinical reevaluation. Return to the emergency department immediately if you feel that your condition is worsening or if you have any new or concerning symptoms. Review your discharge instructions and take any prescriptions given as instructed. [facility] PROVIDES FREE OR LOW-COST HEALTH SERVICES TO PEOPLE WHO CAN SHOW PROOF THAT THEY LIVE IN [facility]. TO FIND MORE CLINICS PARTNERED WITH [facility] TO PROVIDE SERVICE, PLEASE CALL . Ktae Tatum D.O. Jun 04, 2020 09:59
[2020-06-04 10:05] VITALS: BP 138/89
--- NOTE | 2020-06-04 10:05 | NUR ---
ED Nurse Note: Pt cleared by health care Provider for discharge. DC instructions/prescription were given and explained to pt and verbalized understanding of teachings. All medical devices such as ID band removed. Pt is AAO x4, ambulatory and left with all personal belongings.
== END 2020-06-04 10:05 | disposition home or self-care (01) ==
LOC: EMR 09:56
DX: L02.412 Cutaneous abscess of left axilla (principal)
CPT/HCPCS: 99282

== ENCOUNTER 2020-06-20 01:39 | Emergency (ER) | payer MEDICAID ==
[~2020-06-20] VITALS: Ht 182.9 cm; Wt 79.4 kg
[~2020-06-20 01:39] MED LIST changes: +BACTRIM DS TAB1 EAC1 ORAL; +DOXYCYCLINE MO100 M2 PO; +NAPROXEN500 M1 ORAL
--- NOTE | 2020-06-20 01:45 | NUR ---
ED Nurse Note: Patient walked into ED c/o skin tear located on his right hand and stated that he scraped it against a locker. Minor abrasions and minor laceration seen but no active bleeding noted. Pt denies any other injury. Pt last tet shot unknown. Pt is AAOx4 and ambulatory. VSS as documented
[2020-06-20 01:59] VITALS: BP 137/76
[2020-06-20] MEDS ORDERED: MUPIROCIN22 GM TOPIC (02:05)
--- NOTE | 2020-06-20 02:05 | Emergency Room Report ---
History of Present Illness General Chief Complaint: Laceration Source: Patient Present Illness HPI This is a 24-year-old male who is right-hand dominant. He presents with chief complaint of right hand injury. Around 6 hours prior to arrival, he hit his hand against a locker and sustained abrasion to the hand and fingers. No other injury. No active bleeding. Pain is 5 out of 10. Denies any other complaint. 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 Patient History Past Medical History: see triage record, old chart reviewed Past Surgical History: none Pertinent Family History: none Social History: Denies: smoking Immunizations: other Reviewed Nursing Documentation: PMH: Agreed; PSxH: Agreed Nursing Documentation-PMH Past Medical History: No History, Except For Review of Systems Eye: Denies: eye pain, blurred vision ENT: Denies: ear pain, nose congestion, throat swelling Respiratory: Denies: cough, shortness of breath Cardiovascular: Denies: chest pain, palpitations Gastrointestinal: Denies: abdominal pain, diarrhea, nausea, vomiting Musculoskeletal: Denies: back pain, joint pain Skin: Denies: rash Neurological: Denies: headache, numbness Endocrine: Denies: increased thirst, increased urine Hematologic/Lymphatic: Denies: easy bruising All Other Systems: negative except mentioned in HPI Physical Exam Vital Signs Date Time Temp Pulse Resp B/P (MAP) Pulse Ox O2 Delivery O2 Flow Rate FiO2 06/20/20 01:42 98.2 83 18 137/76 (96) 97 Room Air Vitals normal Sp02 EP Interpretation: reviewed, normal General Appearance: well appearing, no apparent distress, alert Head: normocephalic, atraumatic Eyes: bilateral eye PERRL, bilateral eye EOMI ENT: hearing grossly normal, normal pharynx Neck: full range of motion, supple, no meningismus Respiratory: chest non-tender, lungs clear, normal breath sounds Cardiovascular #1: regular rate, rhythm, no murmur Gastrointestinal: normal bowel sounds, non tender, no mass, no organomegaly, no bruit, non-distended Musculoskeletal: back normal, normal range of motion, gait/station normal, ot her - Right hand: He has skin avulsion to the third knuckle and fourth finger over the middle phalanx. Nothing to be sutured. Full range of motion of the MCP, PIP and DIP joints. Psychiatric: mood/affect normal Medical Decision Making Diagnostic Impression: Primary Impression: Avulsion of skin of hand Qualified Codes: S61.401A - Unspecified open wound of right hand, initial encounter ER Course This patient presents with skin avulsion. Nothing to be sutured. No evidence of infection. Will discharge home. Last Vital Signs Date Time Temp Pulse Resp B/P (MAP) Pulse Ox O2 Delivery O2 Flow Rate FiO2 06/20/20 01:59 98.2 88 18 137/76 97 Room Air Status: improved Disposition: HOME, SELF-CARE Condition: Stable Scripts Mupirocin* (MUPIROCIN*) 22 Gm Oint...g. 1 APPLIC TOPIC THREE TIMES A DAY, #22 GM Prov: Evelio Xiong MD 06/20/20 Patient Instructions: Nonsutured Laceration Care Additional Instructions: Keep wound clean. Follow-up with your doctor in 7 days. Return if symptoms wo rsen. Evelio Xiong MD Jun 20, 2020 02:05
[2020-06-20] MEDS ORDERED: Neosporin Oint Ud Pkt TOPIC ONE (02:06)
--- NOTE | 2020-06-20 02:14 | NUR ---
ER DISCHARGE NOTE: Patient is cleared to be discharged per ERMD, pt is aox4, on room air, with stable vital signs. pt was given dc and prescription instructions, pt was able to verbalize understanding, pt id band removed. pt is able to ambulate with steady gait. pt took all belongings.
[2020-06-20 02:15] VITALS: BP 137/76
[2020-06-20] MEDS ORDERED: Tetanus/Diptheria/Pertussis IM ONE (02:15)
[2020-06-20] MEDS ORDERED: Neosporin Oint Ud Pkt TOPIC SCH (02:30)
== END 2020-06-20 02:30 | disposition home or self-care (01) ==
LOC: EMR 02:12
DX: S61.401A Unspecified open wound of right hand, initial encounter (principal); W22.8XXA Striking against or struck by other objects, initial encounter; Y93.9 Activity, unspecified; Y92.9 Unspecified place or not applicable
CPT/HCPCS: 90471; 90715; 99282